=== PATIENT | female | born 1960 | race Caucasian/White ===

== ENCOUNTER 2024-10-09 19:23 | Outpatient (REF) | payer OTHER, SELFPAY ==
[2024-10-09 21:37] LABS: ALT 30 U/L (14-59); AST 17 U/L (15-37); Albumin 3.8 g/dL (3.4-5.0); Alkaline Phosphatase 145 U/L (46-116); Anion Gap 10.1 mmol/L (3-11); BUN 22 mg/dL (7-18); Bilirubin, Total 1.82 mg/dL (0.2-1.0); CO2 27.9 mmol/L (21.0-32.0); Calcium 8.9 mg/dL (8.5-10.1); Chloride 101 mmol/L (98-107); Glucose 133 mg/dL (74-106); Potassium 3.6 mmol/L (3.5-5.1); Sodium 139 mmol/L (136-145); Total Protein 7.4 g/dL (6.4-8.2)
[2024-10-09 22:06] LABS: Abs Immature Grans 0.11 10^3/uL (0.0-0.06); Absolute Basophil Count 0.07 10^3/uL (0.0-0.2); Absolute Eosinophil Count 0.04 10^3/uL (0.0-0.7); Absolute Lymphocyte Count 1.18 10^3/uL (1.2-3.4); Basophils % 0.3 %; Eosinophils % 0.2 %; HCT 37.8 % (36.0-46.0); HGB 12.7 g/dL (11.2-15.7); Immature Grans % 0.5 %; Lymphocytes % 5.3 %; MCH 29.2 pg (27.0-33.0); MCHC 33.6 % (32.0-36.0); MCV 87 fL (80-95); MPV 11.1 fL (8.0-11.0); Monocytes % 3.8 %; Neutrophils % 89.9 %; Platelet Count 264 10^3/uL (130-400); RBC 4.35 10^6/uL (3.93-5.22); RDW 12.1 % (11.7-14.6); RDW-SD 38.9 fL; WBC 22.22 10^3/uL (4.4-10.8)
[2024-10-09 22:07] LABS: Absolute Monocyte Count 0.84 10^3/uL (0.1-0.8); Absolute Neutrophil Count 19.98 10^3/uL (1.2-6.7)
== END 2024-10-09 19:24 | disposition home or self-care (01) ==
LOC: NCHCN 19:23
PROVIDERS: PCP Family Medicine; Visit Provider Nurse Practitioner Family
DX: R19.7 Diarrhea, unspecified (principal); R11.10 Vomiting, unspecified
CPT/HCPCS: 80053; 85025

== ENCOUNTER 2024-10-10 10:11 | Emergency (ER) | payer OTHER, SELFPAY ==
[2024-10-10] VITALS (32 sets, daily range): BP systolic 103–143; BP diastolic 60–73; PULSE 80–100; RESP 12–23; TEMP 37.2–37.4; O2SAT 92–99
--- NOTE | 2024-10-10 11:45 | DI.CT_ITS ---
Exam(s) CT ABDOMEN PELVIS W EXAM: CT ABDOMEN PELVIS W CLINICAL HISTORY: diarrhea, LLQ abd pain, vomiting. TECHNIQUE: Imaging Protocol: Axial computed tomography images with coronal and sagittal reformatted images were created and reviewed CONTRAST MATERIAL: Intravenous: Omnipaque 350 Contrast volume:75 ml Oral: no COMPARISON: No exams were available for comparison FINDINGS: ABDOMEN and PELVIS: Lung Bases: No acute findings. Liver: Normal density. No suspicious mass. Gallbladder and biliary tract: Cholecystectomy. No biliary dilation. Pancreas: Normal density. No abnormal calcifications or inflammatory process. No evidence of mass. Spleen: Normal. Kidneys: Normal size, contour and axis. No radiodense stones. No obstructive uropathy. Bilateral si mple renal cysts. No follow-up recommended. No suspicious masses seen. Adrenal glands: No masses seen. Vasculature: Abdominal aorta non-dilated. Soft tissues: Unremarkable. Bladder: No gross wall thickening. No calculi.No focal mass. Bowel: No obstruction. The colon is nearly free of stool. There is some fluid within the right nenita e of the colon. Mild diffuse wall thickening could indicate colitis there is diarrheal illness. No evidence of diverticulitis. The small bowel is unremarkable. Appendix normal. Peritoneal cavity: No ascites. No focal collection. No mesenteric inflammatory response. No free air . Bones: Unremarkable for age. Reproductive organs: Small uterine fibroids. Lymph nodes: No pathologically enlarged lymph nodes. IMPRESSION:: Fluid is noted in the right side of the colon. The remainder of the colon is decompres sed and shows mild wall thickening which could indicate colitis there has diarrheal illness. RADIATION DOSE DELIVERED: Total DLP DATA REPOSITORY: All CT scans at this facility are submitted to the National Radiology Data Registry (NRDR) Dose Index Registry (DIR) with the [employer] (A[employer]). RADIATION OPTIMIZATION: All CT scans at this facility use at least one of these dose optimization te chniques: automated exposure control; mA and/or kV adjustment per patient size (includes targeted exa ms where dose is matched to clinical indication); or iterative reconstruction.
[2024-10-10 12:01] LABS: Bilirubin Small (Negative); Blood Negative (Negative); Clarity Clear (Clear); Glucose Negative (Negative); Ketones Negative (Negative); Leukocyte Esterase Negative (Negative); Nitrite Negative (Negative); Specific Gravity >= 1.030 (1.005-1.025); Urobilinogen 0.2 mg/dL (Up to 0.2)
[2024-10-10 12:29] LABS: Abs Immature Grans 0.09 10^3/uL (0.0-0.06); Absolute Basophil Count 0.06 10^3/uL (0.0-0.2); Absolute Lymphocyte Count 1.33 10^3/uL (1.2-3.4); Absolute Monocyte Count 0.86 10^3/uL (0.1-0.8); Basophils % 0.3 %; HCT 38.6 % (36.0-46.0); HGB 13.2 g/dL (11.2-15.7); Immature Grans % 0.5 %; Lymphocytes % 7.1 %; MCH 29.1 pg (27.0-33.0); MCHC 34.2 % (32.0-36.0); MCV 85 fL (80-95); MPV 9.9 fL (8.0-11.0); Monocytes % 4.6 %; Neutrophils % 87.5 %; Platelet Count 270 10^3/uL (130-400); RBC 4.54 10^6/uL (3.93-5.22); RDW 12.6 % (11.7-14.6); RDW-SD 38.5 fL; WBC 18.78 10^3/uL (4.4-10.8)
[2024-10-10 12:30] LABS: Bacteria Many HPF (Negative); Crystals Negative HPF (Negative); Epithelial Cells Many HPF (Negative); Other Cells Negative (Negative); WBC 20-50 HPF (0-5)
[2024-10-10 12:31] LABS: C & S Indicated? No/Sq. Contamination; Casts Negative LPF (Negative); Mucus Heavy (Negative)
[2024-10-10] MEDS: Ondansetron 4 MG/2 ML VIAL IVP (12:35)
[2024-10-10] MEDS: Lactated Ringers 1,000 ML 1000 ML IV (12:35)
[2024-10-10 12:37] LABS: Absolute Neutrophil Count 16.43 10^3/uL (1.2-6.7)
[2024-10-10 12:41] LABS: ALT 31 U/L (14-59); AST 14 U/L (15-37); Albumin 3.5 g/dL (3.4-5.0); Alkaline Phosphatase 129 U/L (46-116); Anion Gap 10.5 mmol/L (3-11); BUN 21 mg/dL (7-18); Bilirubin, Total 2.22 mg/dL (0.2-1.0); CO2 27.5 mmol/L (21.0-32.0); CREATININE 0.9 mg/dL (0.55-1.02); Calcium 8.6 mg/dL (8.5-10.1); Chloride 100 mmol/L (98-107); Estimated GFR 71.83 (mL/min/1.73m2); Glucose 130 mg/dL (74-106); Lipase 29 U/L (<78); Magnesium 1.5 mg/dL (1.8-2.4); Sodium 138 mmol/L (136-145); Total Protein 7.7 g/dL (6.4-8.2)
[2024-10-10 13:09] LABS: C Diff PCR Negative (Negative)
[2024-10-10] MEDS: Omnipaque 350 MG/ML 100 ML BTL IJ (14:05)
[2024-10-10] MEDS: Normal Saline - Diluent 50 ML VIAL IJ (14:06)
[2024-10-10] MEDS: MAGNESIUM SULFATE 2 GM/50 ML BAG IV_INF (14:22)
[2024-10-10] MEDS: POTASSIUM CHLORIDE 20 MEQ/100 ML BAG 50 MEQ IV_INF (14:24)
--- NOTE | 2024-10-10 15:08 | W.ED.GENAD ---
Discharge Plan Disposition Patient Disposition: Home Condition: Good Discharge Details Clinical Impression: Gastroenteritis, Colitis Primary Care Provider: Neil Rivera ED Provider: Camilo Greenwood Home Meds and New Rx's Prescriptions: New diphenoxylate-atropine [Lomotil] 2.5-0.025 mg tablet 1 tab PO DAILY Qty: 7 0RF amoxicillin-pot clavulanate 875-125 mg tablet 1 tab PO BID 7 Days Qty: 14 0RF potassium chloride 20 mEq tablet,ER particles/crystals 20 meq PO DAILY Qty: 7 0RF No Action albuterol sulfate 90 mcg/actuation HFA aerosol inhaler 2 puff inhalation Q6H PRN (Reason: shortness of breath or wheezing) Qty: 6.7 0RF hydrochlorothiazide 12.5 mg tablet 12.5 mg PO DAILY lisinopril 5 mg tablet 5 mg PO DAILY ondansetron 4 mg tablet,disintegrating 4 mg PO Q8H PRN (Reason: nausea and vomiting) Qty: 7 0RF rosuvastatin 5 mg tablet 5 mg PO DAILY Discharge Instructions Instructions: Colitis Additional Instructions: At this time you have evidence of mild colitis. There does not appear to be any evidence of significant infection from C. difficile. Please take the Lomotil as needed for the diarrhea. Take a probiotic daily. If your symptoms worsen or persist please take the antibiotic for concern for mild colitis as noted on the CT scan. Please drink plenty of fluids and stay well-hydrated. If you notice any worsening of your symptoms, or any new symptoms such as vomiting, diarrhea, fever, chills, shortness of breath, chest pain, numbness, weakness, or fainting , please return immediately to the emergency department for reevaluation. Please follow up with your primary care provider as soon as possible for reassessment and reevaluation. As always, it was a pleasure participating in your medical care today. Referrals: Neil Rivera [Primary Care Provider] - [facility] General Date/Time Provider Initiated Documentation: 10/10/24 11:17. HPI Narrative: This is a very pleasant 63-year-old female with a past medical history of cholecystectomy, hypertension, high cholesterol, and a very distant history of ulcerative proctitis, not currently on any auto immune regulatory modulators. She presents today for evaluation of diarrhea. Starting at 3 AM yesterday she had not had notable amounts of liquid diarrhea. She is having a diarrhea bowel movement every 15 minutes for the subsequent 24 hours. Last night she also had an episode of vomiting, the diarrhea continued today. She has not been eating anything, she has been drinking less than normal because of this. She feels lightheaded and slightly dizzy. She denies any bloody stools, dark or tarry stools, bright red blood per rectum, or other abnormalities. She admits to mild crampiness but no significant abdominal pain. She denies fever or chills. No other sick contacts. No recent foreign travel, no drinking from streams. No atypical foods. No other complaints. No recent antibiotics. No other complaints at this time. Related Data Home Medications ?Medication ?Instructions ?Recorded ?Confirmed albuterol sulfate 90 mcg/actuation 2 puff inhalation Q6H PRN 06/17/24 10/10/24 aerosol inhaler shortness of breath or wheezing #6.7 grams hydrochlorothiazide 12.5 mg tablet 12.5 mg PO DAILY 10/09/24 10/10/24 lisinopril 5 mg tablet 5 mg PO DAILY 10/09/24 10/10/24 ondansetron 4 mg disintegrating 4 mg PO Q8H PRN nausea and 10/09/24 10/10/24 tablet vomiting #7 tabs amoxicillin 875 mg-potassium 1 tab PO BID 7 days #14 tabs 10/10/24 clavulanate 125 mg tablet diphenoxylate-atropine 2.5 1 tab PO DAILY #7 tabs 10/10/24 mg-0.025 mg tablet (Lomotil) potassium chloride 20 mEq 20 meq PO DAILY #7 tabs 10/10/24 tablet,extended release(part/cryst) rosuvastatin 5 mg tablet 5 mg PO DAILY 10/10/24 10/10/24 Previous Rx's ?Medication ?Instructions ?Recorded albuterol sulfate 90 mcg/actuation 2 puff inhalation Q6H PRN 06/17/24 aerosol inhaler shortness of breath or wheezing #6.7 grams ondansetron 4 mg disintegrating 4 mg PO Q8H PRN nausea and 10/09/24 tablet vomiting #7 tabs amoxicillin 875 mg-potassium 1 tab PO BID 7 days #14 tabs 10/10/24 clavulanate 125 mg tablet diphenoxylate-atropine 2.5 1 tab PO DAILY #7 tabs 10/10/24 mg-0.025 mg tablet (Lomotil) potassium chloride 20 mEq 20 meq PO DAILY #7 tabs 10/10/24 tablet,extended release(part/cryst) Allergies Allergy/AdvReac Type Severity Reaction Status Date / Time No Known Allergies Allergy Verified 10/10/24 10:34 General Stated Complaint: Abd Prob ABDULAZIZ: 3 Exam Narrative Exam Narrative: 1.Const: Well-nourished, Well-developed, appearing stated age 2.Eyes: PERRL, no conjunctival injection, and symmetrical lids. 3.ENT: Atraumatic external nose and ears. Notably dry MM. Neck: Symmetric, trachea midline, No thyromegaly. 4.CVS: +S1/S2, Peripheral pulses 2+ and equal in all extremities. Brisk capillary refill in all extremities. 5.RESP: Unlabored respiratory effort. Clear to auscultation bilaterally. No wheezes rales or rhonchi 6.GI: Soft, Nontender/Nondistended, No hepatosplenomegaly. No guarding or rebound. 7.MSK: Normocephalic/Atraumatic, Extremities w/o deformity or ttp No cyanosis or clubbing, Normal movement of all extremities 8.Skin: Warm, Dry. No rashes or lesions. 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 Sensation grossly intact, no focal neurologic deficits. 10.Psych: (AAO) x3. Appropriate mood and affect Course Vital Signs Vital signs: Vital Signs Temperature 37.2 C 10/10/24 10:31 Pulse 89 10/10/24 10:31 Respiratory Rate 20 10/10/24 10:31 Blood Pressure 103/68 10/10/24 10:31 Pulse Oximetry 95 10/10/24 10:31 Temperature 37.4 C 10/10/24 12:47 Temperature Source Oral 10/10/24 12:47 Pulse 86 10/10/24 14:45 Pulse 86 10/10/24 14:45 Respiratory Rate 14 10/10/24 14:45 Blood Pressure 129/63 10/10/24 14:45 Blood Pressure Mean 87 10/10/24 14:45 Blood Pressure Position Sitting 10/10/24 12:47 Pulse Oximetry 97 10/10/24 14:45 Oxygen Delivery Method Room Air 10/10/24 12:47 Oxygen Flow Rate 0 10/10/24 12:09 Pain Level 2 10/10/24 10:31 Lab/Test Results Lab/Test Results: Laboratory Tests Range/Units 10/10/24 10/10/24 10/10/24 11:48 12:02 12:17 WBC (4.4-10.8) 10^3/uL 18.78 H RBC (3.93-5.22) 10^6/uL 4.54 Hgb (11.2-15.7) g/dL 13.2 Hct (36.0-46.0) % 38.6 MCV (80-95) fL 85 MCH (27.0-33.0) pg 29.1 MCHC (32.0-36.0) % 34.2 RDW (11.7-14.6) % 12.6 Plt Count (130-400) 10^3/uL 270 MPV (8.0-11.0) fL 9.9 Immature Gran % % 0.5 Neutrophils % % 87.5 Lymphocytes % % 7.1 Monocytes % % 4.6 Eosinophils % % 0.0 Basophils % % 0.3 Nucleated RBC % (0.0-0.3) % 0.0 Absolute Neutrophils (1.2-6.7) 10^3/uL 16.43 H Absolute Lymphocytes (1.2-3.4) 10^3/uL 1.33 Absolute Monocytes (0.1-0.8) 10^3/uL 0.86 H Absolute Eosinophils (0.0-0.7) 10^3/uL 0.00 Absolute Basophils (0.0-0.2) 10^3/uL 0.06 Sodium (136-145) mmol/L 138 Potassium (3.5-5.1) mmol/L 3.0 L Chloride (98-107) mmol/L 100 Carbon Dioxide (21.0-32.0) mmol/L 27.5 Anion Gap (3-11) mmol/L 10.5 BUN (7-18) mg/dL 21 H Creatinine (0.55-1.02) mg/dL 0.9 Est GFR (CKD-EPI 2020) (mL/min/1.73m2) 71.83 Glucose (74-106) mg/dL 130 H Calcium (8.5-10.1) mg/dL 8.6 Magnesium (1.8-2.4) mg/dL 1.5 L Total Bilirubin (0.2-1.0) mg/dL AST (15-37) U/L ALT (14-59) U/L Alkaline Phosphatase (46-116) U/L Total Protein (6.4-8.2) g/dL Albumin (3.4-5.0) g/dL Lipase (<78) U/L Urine Color (Yellow) Dark Yellow Urine Clarity (Clear) Clear Urine pH (5-8) 6.0 Ur Specific [place] (1.005-1.025) >= 1.030 H Urine Protein (Neg-Trace) mg/dL 100 H Urine Ketones (Negative) mg/dL Negative Urine Blood (Negative) Negative Urine Nitrite (Negative) Negative Urine Bilirubin (Negative) Small H Urine Urobilinogen (Up to 0.2) mg/dL 0.2 Ur Leukocyte Esterase (Negative) Negative Urine RBC (0-2) HPF 5-10 H Urine WBC (0-5) HPF 20-50 H Ur Epithelial Cells (Negative) HPF Many Urine Crystals (Negative) HPF Negative Urine Bacteria (Negative) HPF Many Urine Casts (Negative) LPF Negative Urine Mucus (Negative) Heavy Urine Other (Negative) Negative Ur Culture Indicated? No/Sq. Contamination Urine Glucose (Negative) mg/dL Negative Stl C.difficile Tox PCR (Negative) Negative Range/Units 10/10/24 12:17 WBC (4.4-10.8) 10^3/uL RBC (3.93-5.22) 10^6/uL Hgb (11.2-15.7) g/dL Hct (36.0-46.0) % MCV (80-95) fL MCH (27.0-33.0) pg MCHC (32.0-36.0) % RDW (11.7-14.6) % Plt Count (130-400) 10^3/uL MPV (8.0-11.0) fL Immature Gran % % Neutrophils % % Lymphocytes % % Monocytes % % Eosinophils % % Basophils % % Nucleated RBC % (0.0-0.3) % Absolute Neutrophils (1.2-6.7) 10^3/uL Absolute Lymphocytes (1.2-3.4) 10^3/uL Absolute Monocytes (0.1-0.8) 10^3/uL Absolute Eosinophils (0.0-0.7) 10^3/uL Absolute Basophils (0.0-0.2) 10^3/uL Sodium (136-145) mmol/L Potassium (3.5-5.1) mmol/L Chloride (98-107) mmol/L Carbon Dioxide (21.0-32.0) mmol/L Anion Gap (3-11) mmol/L BUN (7-18) mg/dL Creatinine (0.55-1.02) mg/dL Est GFR (CKD-EPI 2020) (mL/min/1.73m2) Glucose (74-106) mg/dL Calcium (8.5-10.1) mg/dL Magnesium (1.8-2.4) mg/dL Cancelled Total Bilirubin (0.2-1.0) mg/dL 2.22 H AST (15-37) U/L 14 L ALT (14-59) U/L 31 Alkaline Phosphatase (46-116) U/L 129 H Total Protein (6.4-8.2) g/dL 7.7 Albumin (3.4-5.0) g/dL 3.5 Lipase (<78) U/L 29 Urine Color (Yellow) Urine Clarity (Clear) Urine pH (5-8) Ur Specific [place] (1.005-1.025) Urine Protein (Neg-Trace) mg/dL Urine Ketones (Negative) mg/dL Urine Blood (Negative) Urine Nitrite (Negative) Urine Bilirubin (Negative) Urine Urobilinogen (Up to 0.2) mg/dL Ur Leukocyte Esterase (Negative) Urine RBC (0-2) HPF Urine WBC (0-5) HPF Ur Epithelial Cells (Negative) HPF Urine Crystals (Negative) HPF Urine Bacteria (Negative) HPF Urine Casts (Negative) LPF Urine Mucus (Negative) Urine Other (Negative) Ur Culture Indicated? Urine Glucose (Negative) mg/dL Stl C.difficile Tox PCR (Negative) Medical Decision Making This is a very pleasant 63-year-old female with a past medical history of cholecystectomy, hypertension, high cholesterol, and a very distant history of ulcerative proctitis, not currently on any auto immune regulatory modulators. She presents today for evaluation of diarrhea. Starting at 3 AM yesterday she had not had notable amounts of liquid diarrhea. She is having a diarrhea bowel movement every 15 minutes for the subsequent 24 hours. Last night she also had an episode of vomiting, the diarrhea continued today. She has not been eating anything, she has been drinking less than normal because of this. She feels lightheaded and slightly dizzy. She denies any bloody stools, dark or tarry stools, bright red blood per rectum, or other abnormalities. She admits to mild crampiness but no significant abdominal pain. She denies fever or chills. No other sick contacts. No recent foreign travel, no drinking from streams. No atypical foods. No other complaints. No recent antibiotics. No other complaints at this time. Exam demonstrates notably dry mucous membranes. Nontender abdomen. Stable vital signs. Concern for dehydration, gastroenteritis, diverticulitis. C. difficile, or infectious diarrhea is of concern. We will hydrate, get CT imaging, check for C. difficile, monitor closely and reassess. 5:15 PM Laboratory workup shows white count of 18, which is a drowned trend from yesterday. Mild left shift. No bandemia. Potassium was low at 3, magnesium was low at 1.5, bilirubin slightly elevated 2.2, lipase normal. Urinalysis shows dirty urine, will send for cultures. She has no dysuria to suggest UTI. C. difficile testing was negative. CT scan demonstrates some fluid-filled on the right side of the colon, questionable wall thickening suggesting potential mild colitis. On reassessment patient has been rehydrated, given IV magnesium and potassium and she feels much better. Will send a prescription for potassium home, additionally we will give a prescription for Lomotil home as well, and Augmentin for potential mild colitis if she is not improving. Patient otherwise stable. No signs of an acute surgical abdomen. Vital signs stabilized. No other evidence of significant infectious etiology. Discussed red flags which to return. No evidence of cholecystitis appendicitis or other life-threatening abnormality.. I have extensively reviewed the treatment plan and discharge instructions with the patient and their family. I have addressed all patient concerns at this time. The patient and family was made aware of what symptoms to monitor for that would warrant a return to the emergency department. Discussed the plan with the patient and family, they demonstrate verbal understanding and agreement with our assessment and plan at this time. The documentation in this chart was dictated using [employer] dictation software. Please excuse any dictation errors. FINDINGS: ABDOMEN and PELVIS: Lung Bases: No acute findings. Liver: Normal density. No suspicious mass. Gallbladder and biliary tract: Cholecystectomy. No biliary dilation. Pancreas: Normal density. No abnormal calcifications or inflammatory process. No evidence of mass. Spleen: Normal. Kidneys: Normal size, contour and axis. No radiodense stones. No obstructive uropathy. Bilateral simple renal cysts. No follow-up recommended. No suspicious masses seen. Adrenal glands: No masses seen. Vasculature: Abdominal aorta non-dilated. Soft tissues: Unremarkable. Bladder: No gross wall thickening. No calculi.No focal mass. Bowel: No obstruction. The colon is nearly free of stool. There is some fluid within the right side of the colon. Mild diffuse wall thickening could indicate colitis there is diarrheal illness. No evidence of diverticulitis. The small bowel is unremarkable. Appendix normal. Peritoneal cavity: No ascites. No focal collection. No mesenteric inflammatory response. No free air. Bones: Unremarkable for age. Reproductive organs: Small uterine fibroids. Lymph nodes: No pathologically enlarged lymph nodes. IMPRESSION:: Fluid is noted in the right side of the colon. The remainder of the colon is decompressed and shows mild wall thickening which could indicate colitis there has diarrheal illness. Quality:[facility] Health Related Social Needs: No Data to Display [facility] All Active Problems (Updated 10/10/24 @ 16:46 by Camilo Greenwood DO) Colitis (Acute) Gastroenteritis (Acute) Social History Smoking/Tobacco Use Status: Never Smoking risk assessment performed?: Yes Alcohol Intake: never Drug use: Never Substance use type: does not use
[2024-10-10] MEDS: Normal Saline 1,000 ML 1000 ML IV (15:53)
[2024-10-10 23:06] LABS: Campylobacter PCR Positive (Negative); Salmonella PCR Negative (Negative); Shiga Toxin PCR Negative (Negative); Shigella/Enteroinvasive Ecoli Negative (Negative)
== END 2024-10-10 17:17 | disposition home or self-care (01) ==
PROVIDERS: Emergency Provider Student in an Organized Health Care Education/Training Program; PCP Family Medicine
DX: K52.9 Noninfective gastroenteritis and colitis, unspecified (principal); E87.6 Hypokalemia; E83.42 Hypomagnesemia; I10 Essential (primary) hypertension; E78.5 Hyperlipidemia, unspecified
CPT/HCPCS: 36415; 80053; 83690; 87493; 87505; 96361; 96365; 96366; 96368; 96375; 99285; 74177; 81003; 81015; 83735; 85025; 87177; J2405; J3475; J3480; J3490

== ENCOUNTER 2024-10-31 09:48 | Outpatient (CLI) | payer OTHER, SELFPAY ==
--- NOTE | 2024-10-31 08:45 | DI.RAD_ITS ---
Exam(s) XR CHEST 2V PA LATERAL EXAM: XR CHEST 2V PA LATERAL CLINICAL HISTORY: cough, ? pneumonia,r05.9. TECHNIQUE: 2D digital imaging was performed. COMPARISON: CT CT ABDOMEN PELVIS W from 10/10/2024 FINDINGS: 2 views: Heart size is normal. The mediastinum is not widened. Lungs are clear. No infiltrates nor pleural effusions. IMPRESSION: No acute pulmonary findings. DATA REPOSITORY: RADIATION DOSE DELIVERED:
== END 2024-10-31 10:08 ==
LOC: DI 09:48
PROVIDERS: PCP Nurse Practitioner Family; Visit Provider Physician Assistant
DX: R05.9 Cough, unspecified (principal)
CPT/HCPCS: 71046

== ENCOUNTER 2024-12-06 09:32 | Outpatient (CLI) | payer OTHER, SELFPAY ==
[2024-12-06 12:21] LABS: Absolute Basophil Count 0.11 10^3/uL (0.0-0.2); Absolute Lymphocyte Count 2.98 10^3/uL (1.2-3.4); Absolute Neutrophil Count 9.37 10^3/uL (1.2-6.7); Basophils % 0.8 %; Eosinophils % 7.1 %; HCT 39.5 % (36.0-46.0); HGB 13.2 g/dL (11.2-15.7); Immature Grans % 0.7 %; Lymphocytes % 20.8 %; MCH 29.1 pg (27.0-33.0); MCHC 33.4 % (32.0-36.0); MCV 87 fL (80-95); MPV 10.4 fL (8.0-11.0); Monocytes % 5.2 %; Neutrophils % 65.4 %; Platelet Count 311 10^3/uL (130-400); RBC 4.53 10^6/uL (3.93-5.22); RDW 12.6 % (11.7-14.6); WBC 14.32 10^3/uL (4.4-10.8)
[2024-12-06 12:23] LABS: Absolute Eosinophil Count 1.02 10^3/uL (0.0-0.7); Absolute Monocyte Count 0.74 10^3/uL (0.1-0.8)
[2024-12-06 12:52] LABS: ALT 44 U/L (14-59); AST 27 U/L (15-37); Albumin 4.1 g/dL (3.4-5.0); Alkaline Phosphatase 154 U/L (46-116); Anion Gap 9.3 mmol/L (3-11); BUN 19 mg/dL (7-18); Bilirubin, Total 1.2 mg/dL (0.2-1.0); CO2 27.7 mmol/L (21.0-32.0); CREATININE 0.8 mg/dL (0.55-1.02); Calcium 9.5 mg/dL (8.5-10.1); Calculated LDL 88 mg/dL (<100); Chloride 102 mmol/L (98-107); Cholesterol 187 mg/dL (<200); Estimated GFR 82.23 (mL/min/1.73m2); Glucose 111 mg/dL (74-106); HDL Cholesterol 53 mg/dL (>or=50); Potassium 3.8 mmol/L (3.5-5.1); Sodium 139 mmol/L (136-145); TSH (W/Ref FT4) 5.33 uIU/mL (0.36-3.74); Total Protein 8.5 g/dL (6.4-8.2); Triglyceride 230 mg/dL (<150)
[2024-12-06 13:12] LABS: FREE T4 0.92 ng/dL (0.76-1.46)
[2024-12-06 20:37] LABS: Hepatitis C Ab w Rflx HCV PCR Negative (Negative)
[2024-12-06 20:39] LABS: HIV-1/2 Ag & Ab Screen Negative (Negative)
[2024-12-06 21:04] LABS: HBs Antibody, Quant 3.7 mIU/mL (See Note); Hep B Surface Ab Negative (See Note); Hepatitis B Core Antibody Negative (Negative); Hepatitis B Surface Antigen Negative (Negative)
== END 2024-12-06 09:33 | disposition home or self-care (01) ==
LOC: LOS 09:32
PROVIDERS: PCP Nurse Practitioner Family; Referring Provider Nurse Practitioner Family; Visit Provider Nurse Practitioner Family
DX: K52.9 Noninfective gastroenteritis and colitis, unspecified (principal); E78.00 Pure hypercholesterolemia, unspecified; Z11.59 Encounter for screening for other viral diseases; E03.9 Hypothyroidism, unspecified; Z11.4 Encounter for screening for human immunodeficiency virus [HIV]
CPT/HCPCS: 36415; 80053; 80061; 86704; 86706; 86803; 87340; 87389; 84439; 84443; 85025

== ENCOUNTER 2025-03-04 11:34 | Outpatient (REF) | payer OTHER, SELFPAY ==
--- NOTE | 2025-03-04 09:30 | PAPFT_PTH ---
PATIENT: Bernie Wakefield LOC: [facility] U#:[id number] AGE/SX: 64/F ROOM: RE03/04/[address]: Abhay Graham DNP : 1960 BED: DIS: 03/04/2025 SPEC #: [id number] RECD: 03/04/25 13:11 STATUS: URIEL REQ #: [id number] SHRUTHI: 03/04/25 09:[address]: Abhay Braga DEPT: [facility] Cytology RECD BY: Kae Alvarez Tissues: 1 - CX/ENDOCX FOR PAP SMEARS Procedures: PAP THIN PREP/[facility] Screening HPV DNA PROBE Comments: [id number] (HPV 16 & 18/45)
== END 2025-03-04 11:35 | disposition home or self-care (01) ==
LOC: LBN 11:34
PROVIDERS: PCP Nurse Practitioner Family; Visit Provider Nurse Practitioner Family
DX: Z12.4 Encounter for screening for malignant neoplasm of cervix (principal)
CPT/HCPCS: 88142; 87624